=== PATIENT | female | born 1950 ===

== ENCOUNTER 2021-09-24 20:37 | Emergency (ER) | payer OTHER, SELFPAY ==
[2021-09-24 21:00] VITALS: BP 163/82; PULSE 77; RESP 16; TEMP 36; O2SAT 96
--- NOTE | 2021-09-24 21:15 | DI.CT_ITS ---
Exam(s) CT HEAD WO EXAM: CT HEAD WO CLINICAL HISTORY: headache. TECHNIQUE: Imaging Protocol: Axial computed tomography images with coronal and sagittal reformatted images were created and reviewed COMPARISON: No exams were available for comparison FINDINGS: There are no skull fractures nor fluid in the visualized paranasal sinuses. There is no evidence of intracranial hemorrhage, mass effect, or shift of midline structures. There are no extra-axial fluid collections. The ventricles are not enlarged or shifted and there is no blo od within the ventricular system nor within the basal cisterns. Amount of involutional change is consistent with this patient's age. IMPRESSION: No acute intracranial findings on this noninfused CT scan of the brain. RADIATION DOSE DELIVERED: 688.42mGy.cm Total DLP DATA REPOSITORY: All CT scans at this facility are submitted to the National Radiology Data Registry (NRDR) Dose Index Registry (DIR) with the [employer] ([employer]). RADIATION OPTIMIZATION: All CT scans at this facility use at least one of these dose optimization te chniques: automated exposure control; mA and/or kV adjustment per patient size (includes targeted exa ms where dose is matched to clinical indication); or iterative reconstruction.
[2021-09-24] MEDS: Acetaminophen 325 MG TAB 650 MG PO (21:28)
[2021-09-24 21:47] LABS: Abs Immature Grans 0.01 10^3/uL (0.0-0.06); Absolute Basophil Count 0.04 10^3/uL (0.0-0.2); Absolute Eosinophil Count 0.08 10^3/uL (0.0-0.7); Absolute Lymphocyte Count 2.23 10^3/uL (1.2-3.4); Absolute Monocyte Count 0.39 10^3/uL (0.1-0.8); Absolute Neutrophil Count 3.05 10^3/uL (1.2-6.7); Basophils % 0.7; Eosinophils % 1.4; HCT 40.8 % (36.0-46.0); HGB 13.5 g/dL (11.2-15.7); Immature Grans % 0.2; Lymphocytes % 38.4; MCH 31.3 pg (27.0-33.0); MCHC 33.1 % (32.0-36.0); MCV 95 fL (80-95); MPV 10.1 fL (8.0-11.0); Monocytes % 6.7; Neutrophils % 52.6; Platelet Count 253 10^3/uL (130-400); RBC 4.31 10^6/uL (3.93-5.22); RDW 12.1 % (11.7-14.6); RDW-SD 42.3 fL
[2021-09-24 21:53] LABS: Anion Gap 10.3 mmol/L (3-11); BUN 21 mg/dL (7-18); CO2 24.7 mmol/L (21.0-32.0); CREATININE 1.1 mg/dL (0.55-1.02); Calcium 8.9 mg/dL (8.5-10.1); Chloride 105 mmol/L (98-107); Estimated GFR 48.69 (mL/min/1.73m2); Glucose 124 mg/dL (74-106); Potassium 3.5 mmol/L (3.5-5.1); Sodium 140 mmol/L (136-145)
--- NOTE | 2021-09-24 22:36 | DI.VRAD_ITS ---
PROCEDURE INFORMATION: Exam: CT Head Without Contrast Exam date and time: 09/24/2021 10:06 PM Age: 71 years old Clinical indication: Pain; Headache not specified TECHNIQUE: Imaging protocol: Computed tomography of the head without contrast. Radiation optimization: All CT scans at this facility use at least one of these dose optimization techniques: automated exposure control; mA and/or kV adjustment per patient size (includes targeted exams where dose is matched to clinical indication); or iterative reconstruction. COMPARISON: No relevant prior studies available. FINDINGS: Brain: Minimal bilateral white matter hypodensities which are nonspecific but most commonly associated with chronic microvascular ischemia in this age group. The IACs are grossly normal. No extra-axial fluid collections. Mild prominence of the peripheral CSF spaces, felt to be related to generalized atrophy. No evidence of acute intracranial hemorrhage. No CT evidence of large territory acute or subacute intracranial ischemia/infarct. No intracranial mass lesions. No midline shift or herniation. Cerebral ventricles: Mild compensatory ventriculomegaly secondary to central atrophy. Pituitary gland and sella: The sella is grossly normal. Paranasal sinuses: Visualized sinuses are unremarkable. No fluid levels. Mastoid air cells: Visualized mastoid air cells are clear. Orbital cavities: No acute intraorbital findings. Prior bilateral ocular lens extraction. Bones/joints: The calvarium and visualized facial bones are intact. Minimal mucosal thickening in the right anterior ethmoid distribution suggesting mild changes of chronic sinus inflammatory disease. No fluid levels. Soft tissues: The scalp and visualized soft tissues demonstrate no acute abnormality. Vasculature: Moderate calcific atherosclerosis. No asymmetric vascular hyperdensities suggestive of thrombosis are identified. Other findings: Moderate generalized atrophy. Bernstein-white differentiation is well maintained. IMPRESSION: 1. No acute intracranial process. No intracranial hemorrhage or mass effect. 2. Atrophy consistent with age. 3. Moderate calcific atherosclerosis. 4. Minimal ethmoid sinus mucosal thickening. Dictated and Authenticated by: Nilesh Neal MD. Ordering:SENA Newell MD
[2021-09-24 23:09] VITALS: BP 130/69; PULSE 66; RESP 16; O2SAT 95
[2021-09-24] MEDS: Cyclobenzaprine 10 MG TAB 5 MG PO (23:09)
--- NOTE | 2021-09-24 23:11 | W.ED.GENAD ---
Discharge Plan Disposition Patient Disposition: HOME Condition: Stable Discharge Details Clinical Impression: Headache, Hypertension Primary Care Provider: Unknown,Unknown ED Provider: Osiris Matias Home Meds and New Rx's Prescriptions: New losartan 50 mg tablet 50 mg PO DAILY Qty: 14 0RF cyclobenzaprine 5 mg tablet 5 mg PO TID PRNQty: 7 0RF Continued losartan 50 mg Tablet 50 mg PO DAILY magnesium Tablet 325 tab PO DAILY Discharge Instructions Instructions: Hypertension (ED), General Headache (ED) Additional Instructions: Take Flexeril as needed for headache, use caution as this may make you tired You continue to have every 8 hours Take Tylenol as needed for headache You prescription for your losartan, I do not recommend restarting this medication unless your blood pressure is over 140/60 Please establish care with a primary care doctor when you arrive home and return earlier if here should you have new or worsening complaints Medical Decision Making Patient is well in appearance Her blood pressure actually has been stable here, last blood pressure is 120/70 Alert, oriented Bengali-speaking, history and physical exam obtained with patient grandson in room 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 I discussed with patient and her grandson regarding risk of becoming hypotensive with her blood pressure, they have requested prescriptions and will monitor clinically, recommendation for when to take her blood pressure medication are reviewed unable to express understanding She will need to establish care with a primary care physician when she returns to [place] reportedly in 2 weeks She is discharged home in stable condition with stable vitals Nonfocal neurological exam Medical Records Medical records reviewed: Yes I reviewed the patient's medical records. Lab Data Lab results reviewed: Yes I reviewed the patient's lab results. HPI General Date/Time Provider Initiated Documentation: 09/24/21 20:38. HPI Narrative: This 71-year-old female who is visiting from [place] presents for of headache for the past several months but more persistent in the past 2 days. She states that started in her posterior neck and get to the middle of her head. She denies any fever or chills. She denies any chest pain or shortness of breath. She denies any speech, sensation change or strength change. She denies any dizziness or lightheadedness. She is attributing the headache to being out of her blood pressure medication. She takes losartan. She been out of medication for 2 days. Denies any light sensitivity or sound sensitivity. Denies any falls or injuries. Related Data Home Medications Medication Instructions Recorded Confirmed cyclobenzaprine 5 mg tablet 5 mg PO TID PRN #7 tabs 09/24/21 losartan 50 mg tablet 50 mg PO DAILY 09/24/21 09/24/21 losartan 50 mg tablet 50 mg PO DAILY #14 tabs 09/24/21 magnesium 325 tab PO DAILY 09/24/21 09/24/21 Previous Rx's Medication Instructions Recorded cyclobenzaprine 5 mg tablet 5 mg PO TID PRN #7 tabs 09/24/21 losartan 50 mg tablet 50 mg PO DAILY #14 tabs 09/24/21 Allergies Allergy/AdvReac Type Severity Reaction Status Date / Time No Known Allergies Allergy Unverified 09/24/21 21:06 General Stated Complaint: Headache RHONDA: 4 Review of Systems All systems reviewed & are unremarkable except as noted in HPI and below PFSH All Active Problems (Updated 09/24/21 @ 23:09 by JC Gallegos) Headache (Acute) Hypertension (Chronic) Medical History (Updated 09/24/21 @ 23:09 by JC Gallegos) High blood pressure Surgical History (Updated 09/24/21 @ 21:06 by Shirley Lindsay) History of hysterectomy Social History Smoking/Tobacco Use Status: Never Smoking risk assessment performed?: Yes Alcohol Intake: current Drug use: Never Substance use type: does not use Additional Social history: pt does not speak Welsh and is not alone; unable to ask privately Exam Const General: cooperative, comfortable and no acute distress Eyes Pupils: PERRL Resp Effort & Inspection: normal respiratory effort Auscultation: clear to auscultation bilaterally Cardio Rate: regular rate Rhythm: regular rhythm Skin General skin exam: no rashes or lesions noted Neuro General: patient alert and patient oriented x3 Cranial Nerves: CN's II-XI intact bilaterally and tongue midline Cognition: normal cognition Speech: speech normal Sensory Exam: no sensory deficits noted Course Vital Signs Vital signs: Vital Signs Temperature 36.0 C L 09/24/21 21:00 Pulse 77 09/24/21 21:00 Respiratory Rate 16 09/24/21 21:00 Blood Pressure 163/82 H 09/24/21 21:00 Pulse Oximetry 96 09/24/21 21:00 Temperature 36.0 C L 09/24/21 21:00 Pulse 77 09/24/21 21:00 Respiratory Rate 16 09/24/21 21:00 Respiratory Effort Non-Labored 09/24/21 21:08 Blood Pressure 163/82 H 09/24/21 21:00 Pulse Oximetry 96 09/24/21 21:00 Pain Level 8 09/24/21 21:28 Lab/Test Results Lab/Test Results: Laboratory Tests Range/Units 09/24/21 09/24/21 21:34 21:34 WBC (4.4-10.8) 10^3/uL 5.80 RBC (3.93-5.22) 10^6/uL 4.31 Hgb (11.2-15.7) g/dL 13.5 Hct (36.0-46.0) % 40.8 MCV (80-95) fL 95 MCH (27.0-33.0) pg 31.3 MCHC (32.0-36.0) % 33.1 RDW (11.7-14.6) % 12.1 Plt Count (130-400) 10^3/uL 253 MPV (8.0-11.0) fL 10.1 Immature Gran % 0.2 Neutrophils % 52.6 Lymphocytes % 38.4 Monocytes % 6.7 Eosinophils % 1.4 Basophils % 0.7 Nucleated RBC % (0.0-0.3) % 0.0 Absolute Neutrophils (1.2-6.7) 10^3/uL 3.05 Absolute Lymphocytes (1.2-3.4) 10^3/uL 2.23 Absolute Monocytes (0.1-0.8) 10^3/uL 0.39 Absolute Eosinophils (0.0-0.7) 10^3/uL 0.08 Absolute Basophils (0.0-0.2) 10^3/uL 0.04 Sodium (136-145) mmol/L 140 Potassium (3.5-5.1) mmol/L 3.5 Chloride (98-107) mmol/L 105 Carbon Dioxide (21.0-32.0) mmol/L 24.7 Anion Gap (3-11) mmol/L 10.3 BUN (7-18) mg/dL 21 H Creatinine (0.55-1.02) mg/dL 1.1 H Estimated GFR/1.73 m2 (mL/min/1.73m2) 48.69 Glucose (74-106) mg/dL 124 H Calcium (8.5-10.1) mg/dL 8.9
== END 2021-09-24 23:23 | disposition home or self-care (01) ==
PROVIDERS: Emergency Provider Physician Assistant
DX: R51.9 Headache, unspecified (principal); I10 Essential (primary) hypertension
CPT/HCPCS: 80048; 99284; 70450; 85025